=== PATIENT | male | born 1975 | race Caucasian/White ===

== ENCOUNTER 2023-11-22 10:49 | Outpatient (CLI) | payer OTHER, SELFPAY ==
--- NOTE | ~2023-11-22 | US_ITS ---
EXAMINATION: US soft tissue head and neck DATE: 11/22/2023 11:04 INDICATION: Right supraclavicular mass TECHNIQUE: Multiple grayscale and Doppler ultrasound images of the right supraclavicular region of co ncern were obtained. COMPARISON: None FINDINGS/IMPRESSION: The palpable abnormality corresponds to a 10 x 9 x 5 mm hypoechoic lesion with posterior acoustic enh ancement positioned along the deep margin of the skin. This is nonspecific however there is suggestio n of a subtle tract extending to the skin surface which would be most consistent with an epidermoid/s ebaceous cyst. Reviewed, dictated and finalized at location A.
== END 2023-11-22 10:50 ==
PROVIDERS: PCP Physician Assistant; Visit Provider Physician Assistant
DX: R22.31 Localized swelling, mass and lump, right upper limb (principal)
CPT/HCPCS: 76536

== ENCOUNTER 2024-06-20 01:48 | Day surgery (SDC) | payer OTHER, SELFPAY ==
[2024-04-16 08:50] VITALS: BMI 30.2
[2024-05-31 12:35] VITALS: BMI 30.3
[2024-06-20 08:23] VITALS: BP 138/99; PULSE 88; RESP 16; TEMP 36.3; O2SAT 99
[2024-06-20] MEDS: LACTATED RINGERS 1,000 ML 150 ML IV CONT (08:43)
--- NOTE | 2024-06-20 08:44 | WPDANESEPPF ---
Anes - Initial Pre Proc Eval Procedure: Operation Date: 06/20/24 09:30 Proposed Procedures p Screening Colonoscopy - Nickolas Cabezas MD Date/Time: 06/20/24 08:44 Surgeon: Nickolas Cabezas MD Pre Op Diagnosis: Neoplasm screening Patient Data Age: 49 Gender: M Height: 1.75 m Weight: 93.18 kg Last Vital Signs Temp 97.3 F L 06/20/24 08:23 Pulse 88 06/20/24 08:23 Resp 16 06/20/24 08:23 BP 138/99 H 06/20/24 08:23 Pulse Ox 99 06/20/24 08:23 O2 Del Method Room Air 06/20/24 08:23 Allergies Allergy/AdvReac Type Severity Reaction Status Date / Time No Known Allergies Allergy Verified 06/20/24 08:28 Home Medications Medication Instructions Recorded Confirmed Type No Home Medications 06/20/24 06/20/24 History Patient hx anesthesia problems: none Family hx anesthesia problems: none Results Review: All pre-operative results and documents have been reviewed as part of the pre-operative evaluation. [facility] Past Medical History Medical History Poison juan dermatitis Social History Social History (Updated 11/15/23 @ 15:32 by Amber Novak) Social History: Smoking status: Never smoker Second hand tobacco smoke exposure: No Alcohol intake: current Drinks per week: 4 Substance use: never Substance use type: does not use Do You Feel Safe in your Home?: Yes Lack of Transportation: No Lack of Food: Never True Current Housing: I Have Housing Concerned About Future Housing: No Difficulty Paying Gas/Electric Bills: No Difficulty Paying for Meds: No Currently Unemployed: No Education: Don't Know Difficulty w/ Childcare or Family Care: No Living arrangements: with family Occupation/Education: occupation Gender identity (if verbalized by the patient): Male Sexual Orientation (if Verbalized by the Patient): Straight or Heterosexual Spiritual care concerns: No Anes - Eval Final PreProcedure Day of Procedure 06/20/24 08:44 Patient weight: obese Heart: regular rate and rhythm Lungs: clear to auscultation Airway: Mallampati scale class II Neurological: alert and oriented Last oral intake: >/= 8 hours ASA classification: II Emergent: no Anesthetic plan: proceed Anesthesia type and monitoring: general GIVS and standard monitoring Results Review: All pre-operative results and documents have been reviewed as part of the pre-operative evaluation. Informed Consent: The patient's anesthetic plan and its attendant risks and benefits were discussed with the patient/family/POA. Questions were solicited and answers provided to the satisfaction of the patient/family/POA.
--- NOTE | 2024-06-20 09:00 | PM.HPGS ---
History of Present Illness History of Present Illness Consent: Risks, benefits, and alternatives have been discussed and questions answered. Patient agrees to proceed with procedure. Chief complaint: Neoplasm screening Narrative: Fran Giron is a 49 year old male here for first screening colonoscopy Review of Systems Review of Systems: All systems reviewed & are unremarkable except as noted in HPI and below PMFSH Past Medical History Medical History (Updated 06/20/24 @ 09:01 by Nickolas Cabezas MD) Colon cancer screening Poison juan dermatitis Social History Social History (Updated 11/15/23 @ 15:32 by Amber Novak) Social History: Smoking status: Never smoker Second hand tobacco smoke exposure: No Alcohol intake: current Drinks per week: 4 Substance use: never Substance use type: does not use Do You Feel Safe in your Home?: Yes Lack of Transportation: No Lack of Food: Never True Current Housing: I Have Housing Concerned About Future Housing: No Difficulty Paying Gas/Electric Bills: No Difficulty Paying for Meds: No Currently Unemployed: No Education: Don't Know Difficulty w/ Childcare or Family Care: No Living arrangements: with family Occupation/Education: occupation Gender identity (if verbalized by the patient): Male Sexual Orientation (if Verbalized by the Patient): Straight or Heterosexual Spiritual care concerns: No Meds Home Medications and Allergies Home Medications Medication Instructions Recorded Confirmed Type No Home Medications 06/20/24 06/20/24 History Allergies Allergy/AdvReac Type Severity Reaction Status Date / Time No Known Allergies Allergy Verified 06/20/24 08:28 Vital Signs Vital Signs - 24 hr 06/20/24 08:23 Temperature 97.3 F L Pulse Rate 88 Respiratory Rate 16 Blood Pressure 138/99 H Pulse Oximetry 99 Oxygen Delivery Room Air Exam Const: General: comfortable and no acute distress HENMT: Face/Nose/Sinus: Normal nares present Eyes: General: appearance normal, both eyes and all related structures Neck: Neck: no JVD Resp: Auscultation: clear to auscultation bilaterally Cardio: Rate: regular rate Rhythm: regular rhythm GI: Inspection: non-distended GI Palp: Yes Soft to palpation Skin: General skin exam: normal color Neuro: General: gait normal Speech: normal speech Extrem: General: normal to inspection Psych: Mental Status: mental status grossly normal Assessment and Plan Assessment and plan (1) Colon cancer screening: Code(s): Z12.11 - Encounter for screening for malignant neoplasm of colon Status: Acute Assessment and Plan: colonoscopy
[2024-06-20 09:20] VITALS: BP 104/74; PULSE 85; RESP 17; O2SAT 98
[2024-06-20 09:30] VITALS: BP 127/96; PULSE 74; RESP 20; O2SAT 99
[2024-06-20 09:40] VITALS: BP 130/85; PULSE 78; RESP 16; O2SAT 100
== END 2024-06-20 09:47 | disposition home or self-care (01) ==
PROVIDERS: PCP Family Medicine; Visit Provider Internal Medicine Gastroenterology
PROC: 0DJD8ZZ Inspection of Lower Intestinal Tract, Via Natural or Artificial Opening Endoscopic (ICD-10-PCS; CPT 45378; principal; 2024-06-20 09:30)
DX: Z12.11 Encounter for screening for malignant neoplasm of colon (principal); K64.8 Other hemorrhoids; E66.9 Obesity, unspecified; Z68.30 Body mass index [BMI] 30.0-30.9, adult
CPT/HCPCS: 45378; J2003; J2704; J7120